=== PATIENT | female | born 1965 | race Caucasian/White ===

== ENCOUNTER 2024-04-24 15:53 | Inpatient (IN) ==
[2024-04-24] MEDS: NORMOSOL-R pH 7.4 1000 mL BAG 1,000 ML IV ONE ×2 (16:16→17:47)
[2024-04-24 16:49] LABS: Venous Bicarbonate HCO3 13.8 mmol/L (24-28)
[2024-04-24 17:25] LABS: Albumin 3.2 g/dL (3.2-5.2); Albumin/Globulin Ratio 1.5 (1-3); Calcium 8.1 mg/dL (8.6-10.3); Creatinine, Serum 3.27 mg/dL (0.51-0.95); Globulin 2.1 g/dL (2-4); Magnesium 2.2 mg/dL (1.9-2.7); Phosphorus 9.4 mg/dL (2.5-5.0); Potassium 5.8 mmol/L (3.5-5.0); Total Bilirubin 0.5 mg/dL (0.2-1.0); Total Protein 5.3 g/dL (6.4-8.9); eGFR CKD-EPI 15.8 (>60)
[2024-04-24 17:27] LABS: ABS Basophils 0.1 10^3/uL (0.0-0.1); ABS Lymphocytes 1.4 10^3/uL (1.0-4.8); ABS Nucleated RBC 0.01 10^3/ul; Anisocytosis 1+; Hematocrit 40.9 % (35-45); Hemoglobin 12.2 g/dL (11.5-14.3); Macrocytosis 1+; Mean Corpuscular Hemoglobin 30.7 pg (27-33); Mean Corpuscular Hgb Conc 29.8 g/dL (31-36); Mean Corpuscular Volume 103.1 fL (80-97); Mean Platelet Volume 9.8 fL (7.5-11.2); Nucleated Red Blood Cells % 0.1 %/100WBC (0.0-0.8); Platelet Count 406 10^3/uL (150-450); Polychromasia 1+; Red Blood Count 3.97 10^6/uL (3.63-4.92); White Blood Count 15.5 10^3/uL (3.8-11.8)
[2024-04-24] MEDS ORDERED: Dextrose 50% Syringe 50 ml 25 GM/50 ML SYRINGE IV PUSH PRN (17:32)
[2024-04-24] MEDS: NORMOSOL-R pH 7.4 1000 mL BAG 1,000 ML IV SCH ×2 (17:44→22:34)
[2024-04-24 18:08] LABS: TSH Ultra Thyroid Stim Horm 0.6 mcIU/mL (0.34-5.60)
[2024-04-24] MEDS: Insulin Infusion 100unit/100mL 100 UNIT/100 ML BAG IV SCH (18:17)
[2024-04-24 18:19] LABS: High Sensitivity Troponin 1 Hr 312 pg/mL (<15)
[2024-04-24 18:50] LABS: Calcium 7.5 mg/dL (8.6-10.3); Creatinine, Serum 3.18 mg/dL (0.51-0.95); Magnesium 2.3 mg/dL (1.9-2.7); Phosphorus 8.6 mg/dL (2.5-5.0); Potassium 5.9 mmol/L (3.5-5.0); eGFR CKD-EPI 16.3 (>60)
[2024-04-24] MEDS ORDERED: NORMOSOL-R pH 7.4 1000 mL BAG 1,000 ML IV SCH (19:00)
[2024-04-24 19:36] LABS: Urine Appearance Clear; Urine Bacteria Absent /HPF (Absent); Urine Bilirubin Negative (Negative); Urine Blood 1+ (Negative); Urine Color Light-Yellow; Urine Glucose 4+ (>=1000 mg/dL) (Negative); Urine Ketones 1+ (Negative); Urine Nitrite Negative (Negative); Urine Protein Trace (Negative); Urine Red Blood Cell Trace(0-2/hpf) /HPF (0-Trace); Urine Squamous Epithelial Cell Present /HPF (Absent); Urine Urobilinogen Negative (Negative); Urine White Blood Cell 3+(>20/hpf) /HPF (0-Trace)
[2024-04-24 22:30] LABS: Blood Urea Nitrogen 75 mg/dL (6-24); CO2 Carbon Dioxide 21 mmol/L (22-32); Chloride 87 mmol/L (101-111); Creatinine, Serum 3.07 mg/dL (0.51-0.95); Sodium 129 mmol/L (135-145)
[2024-04-24 22:50] LABS: Glucose 1061 mg/dL (70-100)
[2024-04-24 23:55] LABS: Anion Gap 21 mmol/L (2-16)
[2024-04-25] MEDS: Norepinephrine 4 MG/250mL D5W 4,000 MCG/250 ML BAG IV SCH ×2 (00:27→10:10)
[2024-04-25 00:41] LABS: Venous Bicarbonate HCO3 25.1 mmol/L (24-28)
[2024-04-25 01:34] LABS: Potassium 4.4 mmol/L (3.5-5.0)
[2024-04-25 01:35] LABS: Phosphorus 5.6 mg/dL (2.5-5.0)
[2024-04-25 01:38] LABS: Calcium 7.2 mg/dL (8.6-10.3)
[2024-04-25 01:39] LABS: Creatinine, Serum 3.01 mg/dL (0.51-0.95); Magnesium 2.2 mg/dL (1.9-2.7); eGFR CKD-EPI 17.4 (>60)
[2024-04-25 05:03] LABS: Hematocrit 34.5 % (35-45); Hemoglobin 11.2 g/dL (11.5-14.3); Mean Corpuscular Hemoglobin 30.1 pg (27-33); Mean Corpuscular Hgb Conc 32.6 g/dL (31-36); Mean Corpuscular Volume 92.1 fL (80-97); Mean Platelet Volume 8.9 fL (7.5-11.2); Platelet Count 367 10^3/uL (150-450); Red Blood Count 3.74 10^6/uL (3.63-4.92); Red Cell Distribution Width 13.4 % (12-17); White Blood Count 14.2 10^3/uL (3.8-11.8)
[2024-04-25 05:06] LABS: Calcium 7.4 mg/dL (8.6-10.3); Creatinine, Serum 2.76 mg/dL (0.51-0.95); Magnesium 2.3 mg/dL (1.9-2.7); Phosphorus 5.5 mg/dL (2.5-5.0); Potassium 4.4 mmol/L (3.5-5.0); eGFR CKD-EPI 19.3 (>60)
[2024-04-25 05:41] LABS: Albumin 2.7 g/dL (3.2-5.2); Albumin/Globulin Ratio 1.4 (1-3); Calcium 7.4 mg/dL (8.6-10.3); Creatinine, Serum 2.7 mg/dL (0.51-0.95); Globulin 1.9 g/dL (2-4); Potassium 4.4 mmol/L (3.5-5.0); Total Bilirubin 0.3 mg/dL (0.2-1.0); Total Protein 4.6 g/dL (6.4-8.9); eGFR CKD-EPI 19.8 (>60)
[2024-04-25 05:58] LABS: ABS Lymphocytes 0.9 10^3/uL (1.0-4.8); ABS Monocytes 1.3 10^3/uL (0.0-0.9); ABS Nucleated RBC 0.02 10^3/ul; Anisocytosis 1+; Lymphocyte % 6.7 %; Nucleated Red Blood Cells % 0.1 %/100WBC (0.0-0.8); Polychromasia 1+
[2024-04-25] MEDS: Norepinephrine *QUAD STRENGTH* 16 mg/250 mL NS PREMIX (ICU ONLY) IV SCH (07:08)
[2024-04-25 07:57] LABS: Glucose Confirmatory 462 mg/dL (70-100)
[2024-04-25 08:12] LABS: Magnesium 2.3 mg/dL (1.9-2.7); Phosphorus 5.2 mg/dL (2.5-5.0)
[2024-04-25] MEDS: cefTRIAXone 1 gm/50 mL D5W 1 GM/50 ML BAG IV SCH (10:29)
[2024-04-25] MEDS: Insulin GLARGINE 100 un/ml 10 ml VIAL SUBCUT SCH ×2 (10:29→20:39)
[2024-04-25 11:28] LABS: Anion Gap 6 mmol/L (2-16); Blood Urea Nitrogen 70 mg/dL (6-24); CO2 Carbon Dioxide 37 mmol/L (22-32); Calcium 7.7 mg/dL (8.6-10.3); Chloride 96 mmol/L (101-111); Cholesterol 80 mg/dL; Creatinine, Serum 2.13 mg/dL (0.51-0.95); Glucose 276 mg/dL (70-100); HDL Cholesterol 11.2 mg/dL; LDL Cholesterol 20 mg/dL; Sodium 139 mmol/L (135-145); Triglycerides 246 mg/dL; eGFR CKD-EPI 26.4 (>60)
[2024-04-25] MEDS: Enoxaparin 80 MG/0.8 ML SYR SUBCUT SCH (14:18)
[2024-04-25] MEDS: D5W 500 ml BAG 500 ML IV SCH (14:18)
[2024-04-25 14:29] LABS: Magnesium 2.2 mg/dL (1.9-2.7); Phosphorus 3.2 mg/dL (2.5-5.0); Potassium Redraw 4.1 mmol/L (3.5-5.0)
[2024-04-25] MEDS: Acetaminophen IV 1 GM/100ML 1,000 MG/100 ML BAG IV PRN (15:04)
[2024-04-25] MEDS ORDERED: Dextrose 50% Syringe 50 ml 25 GM/50 ML SYRINGE IV PUSH PRN (17:53)
[2024-04-25 18:39] LABS: Urine Benzodiazepine Screen None Detected (None Detect); Urine Buprenorphine Screen None Detected (None Detect); Urine Cannabinoids Screen None Detected (None Detect); Urine Fentanyl Screen None Detected (None Detect); Urine Hydrocodone Screen None Detected (None Detect); Urine Opiates Screen None Detected (None Detect)
[2024-04-26] MEDS: Haloperidol 5 mg/ml SDV IV/IM 5 MG/ML AMP IV SLOW PU ONE (00:12)
[2024-04-26 01:03] LABS: Venous Bicarbonate HCO3 36.6 mmol/L (24-28)
[2024-04-26 04:53] LABS: ABS Lymphocytes 0.8 10^3/uL (1.0-4.8); ABS Monocytes 0.9 10^3/uL (0.0-0.9); ABS Neutrophils 9.1 10^3/uL (1.5-7.6); ABS Nucleated RBC 0.01 10^3/ul; Eosinophil % 0.3 %; Hematocrit 31.1 % (35-45); Hemoglobin 10.6 g/dL (11.5-14.3); Lymphocyte % 6.9 %; Mean Corpuscular Volume 91.1 fL (80-97); Mean Platelet Volume 8.9 fL (7.5-11.2); Nucleated Red Blood Cells % 0.1 %/100WBC (0.0-0.8); Platelet Count 274 10^3/uL (150-450); Red Blood Count 3.41 10^6/uL (3.63-4.92); Red Cell Distribution Width 13.7 % (12-17); White Blood Count 10.9 10^3/uL (3.8-11.8)
[2024-04-26 05:35] LABS: Albumin 2.6 g/dL (3.2-5.2); Albumin/Globulin Ratio 1.6 (1-3); Calcium 7.6 mg/dL (8.6-10.3); Creatinine, Serum 1.1 mg/dL (0.51-0.95); Globulin 1.6 g/dL (2-4); Potassium 4.1 mmol/L (3.5-5.0); Total Bilirubin 0.3 mg/dL (0.2-1.0); Total Protein 4.2 g/dL (6.4-8.9); eGFR CKD-EPI 58.2 (>60)
[2024-04-26 07:40] LABS: Venous Bicarbonate HCO3 34.5 mmol/L (24-28)
[2024-04-26] MEDS ORDERED: Insulin GLARGINE 100 un/ml 10 ml VIAL SUBCUT SCH (09:00)
[2024-04-26] MEDS: Lactated Ringers 1000 ml BAG 1,000 ML IV SCH (10:26)
[2024-04-26] MEDS: Ondansetron 4 mg VIAL 2 MG/ML 2 ml VIAL IV PRN (12:03)
[2024-04-26] MEDS ORDERED: Dextrose 50% Syringe 50 ml 25 GM/50 ML SYRINGE IV PUSH PRN (15:23)
[2024-04-26] MEDS: Pancrelipase 5,000 units CAP PO SCH (17:57)
[2024-04-26] MEDS: CMC:Ticagrelor 60 mg TAB (NF) PO SCH (19:17)
[2024-04-27 04:44] LABS: ABS Lymphocytes 0.9 10^3/uL (1.0-4.8); ABS Monocytes 0.5 10^3/uL (0.0-0.9); ABS Neutrophils 3.9 10^3/uL (1.5-7.6); ABS Nucleated RBC 0.01 10^3/ul; Eosinophil % 0.3 %; Hematocrit 30.7 % (35-45); Hemoglobin 10.6 g/dL (11.5-14.3); Lymphocyte % 16.7 %; Mean Corpuscular Hemoglobin 31.4 pg (27-33); Mean Corpuscular Hgb Conc 34.5 g/dL (31-36); Mean Corpuscular Volume 91.1 fL (80-97); Mean Platelet Volume 8.9 fL (7.5-11.2); Nucleated Red Blood Cells % 0.3 %/100WBC (0.0-0.8); Platelet Count 229 10^3/uL (150-450); Red Blood Count 3.37 10^6/uL (3.63-4.92); Red Cell Distribution Width 13.9 % (12-17); White Blood Count 5.4 10^3/uL (3.8-11.8)
[2024-04-27 05:01] LABS: Albumin 2.6 g/dL (3.2-5.2); Albumin/Globulin Ratio 1.4 (1-3); Calcium 7.8 mg/dL (8.6-10.3); Creatinine, Serum 0.97 mg/dL (0.51-0.95); Globulin 1.8 g/dL (2-4); Magnesium 1.6 mg/dL (1.9-2.7); Potassium 3.5 mmol/L (3.5-5.0); Total Bilirubin 0.5 mg/dL (0.2-1.0); Total Protein 4.4 g/dL (6.4-8.9); eGFR CKD-EPI 67.7 (>60)
[2024-04-27] MEDS: Iodixanol 320 (CONTRAST) 100 ML SDV IV ONE (07:28)
[2024-04-27] MEDS: CMC:Vilazodone 40 mg TAB (NF) PO SCH (09:04)
[2024-04-27] MEDS: Ondansetron 4 mg VIAL 2 MG/ML 2 ml VIAL IV ONE (23:27)
[2024-04-28 06:47] LABS: ABS Lymphocytes 1.1 10^3/uL (1.0-4.8); ABS Monocytes 0.6 10^3/uL (0.0-0.9); ABS Nucleated RBC 0.01 10^3/ul; Eosinophil % 0.9 %; Hematocrit 36.7 % (35-45); Hemoglobin 12.3 g/dL (11.5-14.3); Lymphocyte % 23.4 %; Mean Corpuscular Hemoglobin 30.6 pg (27-33); Mean Corpuscular Hgb Conc 33.5 g/dL (31-36); Mean Corpuscular Volume 91.4 fL (80-97); Mean Platelet Volume 9.1 fL (7.5-11.2); Nucleated Red Blood Cells % 0.2 %/100WBC (0.0-0.8); Platelet Count 250 10^3/uL (150-450); Red Blood Count 4.02 10^6/uL (3.63-4.92); Red Cell Distribution Width 13.8 % (12-17); White Blood Count 4.7 10^3/uL (3.8-11.8)
[2024-04-28 07:36] LABS: Albumin 2.8 g/dL (3.2-5.2); Albumin/Globulin Ratio 1.2 (1-3); Calcium 8.4 mg/dL (8.6-10.3); Creatinine, Serum 0.93 mg/dL (0.51-0.95); Globulin 2.3 g/dL (2-4); Magnesium 1.5 mg/dL (1.9-2.7); Phosphorus 2.1 mg/dL (2.5-5.0); Potassium 3.9 mmol/L (3.5-5.0); Total Bilirubin 0.5 mg/dL (0.2-1.0); Total Protein 5.1 g/dL (6.4-8.9); eGFR CKD-EPI 71.2 (>60)
[2024-04-28] MEDS: NS 0.9% IV ONE (08:23)
[2024-04-28] MEDS: SODIUM PHOSPHATE IV ONE (08:23)
[2024-04-28] MEDS: Magnesium Sulf 4 GM/100 ML IV 4,000 MG/100 ML BAG IVPB ONE (08:30)
[2024-04-28] MEDS: Metoclopramide 5 MG/ML VIAL (10 mg) IV SLOW PU SCH (14:10)
[2024-04-28 15:11] LABS: Urine Potassium Concentration 12.7 mmol/L
[2024-04-28 16:14] LABS: Urine Appearance Clear; Urine Bilirubin Negative (Negative); Urine Blood Trace (Negative); Urine Color Light-Yellow; Urine Glucose 3+ (>=300 mg/dL) (Negative); Urine Ketones Negative (Negative); Urine Nitrite Negative (Negative); Urine Protein 2+ (>=100 mg/dL) (Negative); Urine Specific Gravity 1.011 (1.002-1.030); Urine Urobilinogen Negative (Negative)
[2024-04-28 16:21] LABS: Urine Bacteria Absent /HPF (Absent); Urine Red Blood Cell Trace(0-2/hpf) /HPF (0-Trace); Urine Renal Epithelial Cells Present /HPF (Absent); Urine Squamous Epithelial Cell Present /HPF (Absent); Urine White Blood Cell 1+(6-10/hpf) /HPF (0-Trace)
[2024-04-28 16:30] LABS: Venous Bicarbonate HCO3 34.9 mmol/L (24-28)
[2024-04-28 17:01] LABS: Calcium 7.9 mg/dL (8.6-10.3); Creatinine, Serum 0.96 mg/dL (0.51-0.95); Potassium 3.5 mmol/L (3.5-5.0); eGFR CKD-EPI 68.6 (>60)
[2024-04-28 21:18] LABS: Glucose Confirmatory 413 mg/dL (70-100)
[2024-04-28] MEDS: Insulin GLARGINE 100 un/ml 10 ml VIAL SUBCUT SCH (21:44)
[2024-04-29 06:49] LABS: Albumin/Globulin Ratio 1.3 (1-3); Calcium 8.4 mg/dL (8.6-10.3); Creatinine, Serum 0.99 mg/dL (0.51-0.95); Globulin 2.4 g/dL (2-4); Magnesium 1.9 mg/dL (1.9-2.7); Phosphorus 3.4 mg/dL (2.5-5.0); Potassium 3.3 mmol/L (3.5-5.0); Total Bilirubin 0.6 mg/dL (0.2-1.0); Total Protein 5.4 g/dL (6.4-8.9); eGFR CKD-EPI 66.1 (>60)
[2024-04-29 08:16] LABS: ABS Eosinophils 0.2 10^3/uL (0.0-0.5); ABS Lymphocytes 1.8 10^3/uL (1.0-4.8); ABS Monocytes 0.8 10^3/uL (0.0-0.9); ABS Neutrophils 3.9 10^3/uL (1.5-7.6); ABS Nucleated RBC 0.01 10^3/ul; Eosinophil % 2.7 %; Lymphocyte % 26.5 %; Mean Corpuscular Hgb Conc 33.3 g/dL (31-36); Mean Platelet Volume 9.5 fL (7.5-11.2); Nucleated Red Blood Cells % 0.1 %/100WBC (0.0-0.8); Platelet Count 234 10^3/uL (150-450); Red Blood Count 4.19 10^6/uL (3.63-4.92); Red Cell Distribution Width 13.5 % (12-17); White Blood Count 6.6 10^3/uL (3.8-11.8)
[2024-04-29] MEDS: Potassium Chlor 20 meq TAB.ER PO ONE (08:27)
[2024-04-29] MEDS: Magnesium Sulfate IV 1GM/100ML 1 GM/100 ML BAG IV ONE (08:30)
[2024-04-29] MEDS: Senna TAB 8.6 mg TAB PO SCH (11:32)
[2024-04-29] MEDS: Polyethylene Glycol 3350 17 GM PACKET PO SCH (11:32)
[2024-04-29] MEDS: Senna TAB 8.6 mg TAB ONE (11:33)
[2024-04-29] MEDS: Polyethylene Glycol 3350 17 GM PACKET ONE (11:34)
[2024-04-29 15:16] VITALS: BP 139/62
[2024-04-29] MEDS: COVID VAC 24-25 (12+) (Moderna) Syringe 0.5 mL IM ONE (17:20)
[2024-04-30] MEDS ORDERED: COVID VAC 24-25 (12+) (Moderna) Syringe 0.5 mL IM ONE (09:00)
== END 2024-04-29 17:58 | disposition home or self-care (01) | DRG 637 ==
LOC: ED 15:53 → EDHOLD 17:20 → SUATTDRO 17:20 → ICU 04-25 07:54 → MEDTELE 04-25 09:20 → SSU 04-27 17:48 → MEDTELE 04-28 20:06
PROVIDERS: ADMIT Student in an Organized Health Care Education/Training Program; ATTEND Internal Medicine